=== PATIENT | male | born 1945 | race Hispanic/Latino ===

== ENCOUNTER 2019-02-21 12:23 | Emergency (ER) | payer MEDICARE ==
[2019-02-21] MEDS ORDERED: TETRACAINE HCL 0.5% 4 ML OPHTH SOLN ONE (12:36)
[2019-02-21] MEDS ORDERED: NA BORATE/BORIC AC/H2O/NACL 120 ML OPHTH IRRIG SOLN ONE (12:36)
[2019-02-21] MEDS ORDERED: FLUORESCEIN SODIUM 1 STRIP STRIP ONE (12:36)
[2019-02-21] MEDS ORDERED: ERYTHROMYCIN BASE 0.5% OPHTH OINT 1 GM TUBE ONE (13:08)
[2019-02-21] MEDS ORDERED: TETANUS/DIPHTHERIA TOXOID [ADULT] 0.5 ML VIAL IM ONE (13:08)
== END 2019-02-21 13:27 | disposition home or self-care (01) ==
LOC: EDH 12:23
DX: T15.01XA Foreign body in cornea, right eye, initial encounter (principal); X58.XXXA Exposure to other specified factors, initial encounter; Y93.89 Activity, other specified; Y92.89 Other specified places as the place of occurrence of the external cause; Y99.8 Other external cause status
CPT/HCPCS: 65220; 90471; 90714

== ENCOUNTER → 2021-02-05 | Outpatient (CLI) | payer OTHER | END | disposition home or self-care (01) | LOC: RAH 15:04 | PROVIDERS: ATTEND Family Medicine | DX: R60.9 Edema, unspecified (principal) | CPT/HCPCS: 93925 ==

== ENCOUNTER 2024-05-03 09:15 | Emergency (ER) | payer OTHER ==
[~2024-05-03] VITALS: Ht 170.2 cm; Wt 74.8 kg
[2024-05-03] MEDS ORDERED: ERYT1OIN7 OP (11:44)
[2024-05-03 11:55] VITALS: BP 167/65; PULSE 60; RESP 16; O2SAT 100
[2024-05-03] MEDS: ERYTHROMYCIN BASE 0.5% OPHTH OINT 1 GM TUBE OS ONE (11:55)
[2024-05-03] MEDS: FLUORESCEIN SODIUM 1 STRIP STRIP ONE (11:55)
[2024-05-03] MEDS: TETRACAINE HCL 0.5% 4 ML OPHTH SOLN OP ONE (11:55)
[2024-05-03] MEDS: FLUORESCEIN SODIUM 1 STRIP STRIP OP SCH (11:55)
== END 2024-05-03 11:59 | disposition home or self-care (01) ==
LOC: EDH 09:15
DX: S05.02XA Injury of conjunctiva and corneal abrasion without foreign body, left eye, initial encounter (principal); X58.XXXA Exposure to other specified factors, initial encounter; Y93.89 Activity, other specified; Y92.89 Other specified places as the place of occurrence of the external cause; Y99.8 Other external cause status